=== PATIENT | female | born 1995 | race Caucasian/White ===

== ENCOUNTER 2019-01-12 13:53 | Emergency (ER) | payer BC ==
--- NOTE | 2019-01-12 14:49 | UC ---
Skin Complaint HPI - HPI Summary HPI Summary: 23 yo female presents with tick bite. She tells me that last night her removed a tick from her mid back. Tick was not engorged and does not believe it was attached more than 1 day. Pt is most concerned because she is . She has no symptoms currently - History of Current Complaint Time Seen by Provider: 01/12/19 14:49 Stated Complaint: TICK BITE Hx Last Menstrual Period: 06/01/14 Onset/Duration: Sudden Onset Current Severity: None - Allergy/Home Medications Allergies/Adverse Reactions: Allergies Allergy/AdvReac Type Severity Reaction Status Date / Time No Known Allergies Allergy Verified 01/12/19 14:55 Home Medications: Home Medications Pnv No.95/Ferrous Fum/Folic AC [ Vitamin & Minera 28-0.8 mg] 1 tab PO DAILY 01/12/19 [History Confirmed 01/12/19] Pyridoxine HCl (Vitamin B6) [Vitamin B-6] 25 mg PO DAILY 01/12/19 [History Confirmed 01/12/19] PMH/Surg Hx/FS Hx/Imm Hx - Additional Past Medical History Additional PMH: None - Surgical History Surgical History: None - Family History Known Family History: Positive: None - Social History Occupation: Employed Full-time Lives: With Family Alcohol Use: None Substance Use Type: None Smoking Status (MU): Never Smoked Tobacco Review of Systems All Other Systems Reviewed And Are Negative: No Constitutional: Positive: Negative Skin: Positive: Other - Tick bite Respiratory: Positive: Negative Cardiovascular: Positive: Negative Neurological: Positive: Negative Psychological: Positive: Negative Physical Exam - Summary Physical Exam Summary: GENERAL: NAD. WDWN. No pain distress. SKIN: Mid back: there is a 4mm diameter of mild erythema and edema with central 1mm area of superficial skin loss. No streaking, bleeding, or drainage. NECK: Supple. Nontender. No lymphadenopathy. CHEST: No accessory muscle use. Breathing comfortably and in no distress. CV: Pulses intact. Cap refill <2seconds NEURO: Alert. PSYCH: Age appropriate behavior. Triage Information Reviewed: Yes Vital Signs: Vital Signs: Temp Pulse Resp BP Pulse Ox 97.5 F 70 15 116/63 100 01/12/19 14:56 01/12/19 14:56 01/12/19 14:56 01/12/19 14:56 01/12/19 14:56 Vital Signs Reviewed: Yes Course/Dx - Course Course Of Treatment: Tick bite. No symptoms at this time. Pt is 4 months - no indication for prophylactic medication at this time and she cannot take doxycycline. Recommend monitoring for signs/symptoms of lyme and being tested by PCP for lyme in about 6 weeks - Diagnoses Provider Diagnosis: Tick bite Discharge ED - Sign-Out/Discharge Documenting (check all that apply): Patient Departure All imaging exams completed and their final reports reviewed: No Studies - Discharge Plan Condition: Stable Disposition: HOME Patient Education Materials: Lyme Disease (ED), Tick Bite (ED) Referrals: Brianda Marks NP [Primary Care Provider] - Additional Instructions: TICK BITE: You have been bitten by a tick. Once the tick is removed, these "bites" usually cause no problems. Tick fever, tick paralysis, [place] Spotted fever, and Lyme disease are uncommon -- but you should mention this tick bite to your doctor if you develop unusual symptoms in the next several weeks. If you develop any of the following, please see your physician promptly: (1) Fever, chills, or generalized malaise associated with a headache. (2) A red round area at the site of the bite (or elsewhere) (3) Joint pain, joint swelling or generalized weakness. (4) Redness, swelling, or drainage at the site of the bite. Ticks do not have a typical "head" attached to their body. There are mouth parts sticking out which they use to feed. If there are mouth parts left behind in the wound there is NO increased risk of Lyme infection or disease transmission. If mouth parts remain after tick removal, the best thing to do is apply warm soaks to the area 3-4 times per day to encourage the skin to expel the foreign material. WHEN A TICK IS NOT ENGORGED AND HAS BEEN ON LESS THAN 24 HOURS - THE RISK FOR LYME IS NEGLIGIBLE. YOU CAN REMOVE THE TICK AND OBSERVE THE AREA ON YOUR OWN. I RECOMMEND THAT YOU BE TESTED FOR LYME DISEASE IN ABOUT 6 WEEKS BY YOUR PRIMARY DOCTOR - Billing Disposition and Condition Condition: STABLE Disposition: Home
[2019-01-12 15:00] VITALS: BP 116/63
== END 2019-01-12 15:03 | disposition home or self-care (01) ==
LOC: UCCORT 13:53
DX: S20.469A Insect bite (nonvenomous) of unspecified back wall of thorax, initial encounter (principal); W57.XXXA Bitten or stung by nonvenomous insect and other nonvenomous arthropods, initial encounter; Y92.9 Unspecified place or not applicable
CPT/HCPCS: 99211; G0463